=== PATIENT | female | born 1950 | race Caucasian/White ===

== ENCOUNTER 2018-02-12 06:25 | Inpatient (IN) ==
[~2018-02-12 06:25] MED LIST: ACETAMINOPHEN 500 MG TABLET PO ONE; DEXAMETHASONE 4 MG/ML INJECTION IVP ONE; FAMOTIDINE PB 20 MG/50 ML BAG IV ONE; LIDOCAINE 1% (10mg/ml) 2mL INJ PF SDV ID ONE; MELOXICAM 15 MG TABLET PO ONE; METOCLOPRAMIDE 10mg/2ml INJECTION IVP ONE; ONDANSETRON 4 MG/2 ML INJECTION IVP ONE; TRANEXAMIC ACID 1,000 MG in NS 100 ML IV ONE
[2018-02-12] MEDS ORDERED: CEFAZOLIN 1 G INJECTION IVP ONE (06:31)
[2018-02-12 06:36] VITALS: BMI 33.7
[2018-02-12] MEDS ORDERED: TRANEXAMIC ACID 1,000 MG in NS 100 ML IV ONE (07:00)
[2018-02-12] MEDS: LR 1,000 ML IV SCH ×2 (07:02→09:00)
[2018-02-12] MEDS: NOZIN NASAL SWAB NAS SCH ×5 (07:04→22:26)
[2018-02-12] MEDS ORDERED: EPINEPHrine PF 0.25 MG, BUPIVACAINE 0.25% PF 30 ML, KETOROLAC INJ 60 MG in NS 30 ML OPSITE ONE (08:00)
--- NOTE | 2018-02-12 08:07 | Anesthesia Preoperative Report ---
Anesthesia Preoperative Record - Date and Time Date: 02/12/18 Preoperative Diagnosis: Lt TKA M17.12 Proposed Procedure: Total Knee NPO Since Date: 02/12/18 NPO Since Time: 00:00 Allergies/Adverse Reactions: Allergies Allergy/AdvReac Type Severity Reaction Status Date / Time nickel Allergy Intermediate Verified 02/12/18 06:45 No Known Drug Allergies Allergy Unknown Verified 02/12/18 06:45 collagen Allergy Intermediate Uncoded 02/12/18 06:45 - Vital Signs Vital Signs: Temperature 98.3 F 02/12/18 06:33 Pulse Rate 80 02/12/18 06:49 Respiratory Rate 15 02/12/18 06:33 Blood Pressure 160/78 H 02/12/18 07:15 Pulse Oximetry 94 02/12/18 06:33 Height and Weight: Height 5 ft 6.5 in Weight 96.3 kg Body Mass Index 33.7 - Medications Inpatient Medications: Current Medications Epinephrine HCl 0.25 mg/Bupivacaine HCl 30 ml/Ketorolac Tromethamine 60 mg/ Sodium Chloride 62.25 mls @ 1 mls/hr OPSITE INTRAOP ONE; Protocol Stop: 02/14/18 22:14 Lactated Ringer's (Lactated Ringers) 1,000 mls @ 50 mls/hr IV .Q20H [facility] Last Admin: 02/12/18 07:02 Dose: 50 mls/hr Isopropyl Alcohol (Nozin Nasal Swab) 1 each SANDHYA Q1M [facility] Stop: 02/12/18 13:03 Last Admin: 02/12/18 07:07 Dose: 1 each Sodium Chloride (Iv Flush) 10 - 80 ml IV PRN PRN PRN Reason: [place] Home Medications: Home Medications Medication Instructions Recorded Confirmed Type Antiiinflammatory [place] Plus 1 dose PO TID 02/05/18 02/12/18 History Ascorbic Acid [Vitamin C] 1,000 mg PO TID 02/05/18 02/12/18 History Detox Professional Support 3 cap PO DAILY 02/05/18 02/12/18 History Enterpro 1 dose PO BID 02/05/18 02/12/18 History Ergocalciferol (Vitamin D2) 2 tab PO DAILY 02/05/18 02/12/18 History [Vitamin D2] Fish Oil/Dha/Epa [Fish Oil 1,200 1 each PO DAILY 02/05/18 02/12/18 History mg Fish Oil] Fluticasone Nasal [place] [Flonase] 1 spray EA NOSTRIL DAILY PRN 02/05/18 History [id number] 25 gm MC DAILY 02/05/18 02/12/18 History Magnesium Citrate 200 mg PO BID 02/05/18 02/12/18 History Methylsulfonylmethane [MSM] 3 g PO QID 02/05/18 02/12/18 History Pgx Daily 1,500 mg PO DAILY 02/05/18 02/12/18 History Synovx Metabolic 1 cap PO BID 02/05/18 02/12/18 History Synovx Performance 2 cap PO BID 02/05/18 02/12/18 History Tryptophan [l-Tryptophan] 500 mg PO BID 02/05/18 02/12/18 History Ubiquinol 100 mg PO BID 02/05/18 02/12/18 History Vital Eyes Complete 1 tab PO TID 02/05/18 02/12/18 History Docusate Sodium [Stool Softener] 50 mg PO DAILY 02/12/18 02/12/18 History Is Patient on Beta Ty[place]?: No - Medical History Respiratory: DENIES: Asthma, Bronchitis, Chronic Obstructive Pulmonary Disease (COPD), Dyspnea, Orthopnea, Pulmonary Embolism, Pneumonia, Upper Respiratory Infection, Pulmonary Edema, Sleep Apnea, Tuberculosis, Other Cardiovascular: DENIES: Abnormal EKG, Angina, Arrhythmia, Congestive Heart Failure, Coronary Artery Disease, Heart Murmur, Hypertension, Hypotension, High Cholesterol, Myocardial Infarction, Rheumatic Fever, Valvular Heart Disease, Other Gastrointestional: DENIES: Morbid Obesity (Overweight) Neuro/Musculoskeletal: Reports: Back Problems (low back ) Renal/Endocrine: DENIES: Diabetes Mellitus Type 1, Diabetes Mellitus Type 2 Other History: DENIES: Anesthesia Reactions - Surgical History HEENT Surgeries: Reports: Tonsillectomy Cardiac Surgeries/Treatments: DENIES: Cardiac Catheterization GI Surgery/Treatments: Reports: Appendectomy, Colonoscopy, Other (Exc benign abd mass) Musculoskeletal Surgery/Tx: Reports: Knee Arthroscopy (Left) Reproductive Surgery/Treatment: Reports: Hysterectomy Anesthesia Reactions: None Hx Family Anesthesia Reaction: No History of Motion Sickness: No - Social History Smoking Status: Never smoker Substance Use Type: does not use Alcohol Intake Frequency: holidays/special occasions only - Pertinent Findings EKG: Sinus Rhythm - Physical Exam Respiratory Exam: Present: lungs clear, bilateral breath sounds equal Cardiovascular Exam: Present: regular rate and rhythm, no murmur - Airway Assessment Mallampati Score: III TMD: 2 Fingerbreadths Neck Extension: poor Overall Assessment: may be difficult mask vent, may be difficult intubation - ASA ASA Score: 2 - Plan Anesthesia: Regional Block, Neuroaxial Regional/Trunk Block: Spinal Peripheral Nerve Block: Adductor Canal-Left - Discussion Discussion: Discussed risks/options/alternatives of anesthesia and questions answered. Patient consents. Nursing pain assessment noted. Present for Discussion: spouse Attestation Statement: Prior to the delivery of any anesthetic medication, I examined the patient, developed the plan, obtained the patient's consent and discussed the risk and benefits of the procedure with the patient/guardian. - Additional Information Seen by Anesthesia: Yes
[2018-02-12] MEDS ORDERED: VANCOMYCIN 1,000 MG INJECTION ONE (08:13)
[2018-02-12] MEDS ORDERED: VANCOMYCIN 1,000 MG INJECTION IAR ONE (09:02)
[2018-02-12] MEDS ORDERED: LIDOCAINE 2% (100mg/5mL) 5ml PF SDV ONE (09:14)
[2018-02-12] MEDS ORDERED: BUPIVACAINE 0.75%/DEXTROSE 8.5% SPINAL 2 ML AMPULE IJ ONE (09:14)
[2018-02-12] MEDS ORDERED: PROPOFOL 1,000 MG/100 ML VIAL ONE (09:14)
[2018-02-12] MEDS ORDERED: ROPIVACAINE 0.5% (5mg/ml) 30ml INJ ONE (10:04)
[2018-02-12] MEDS ORDERED: PROPOFOL 20 ML ONE (10:24)
--- NOTE | 2018-02-12 11:18 | Anesthesia Procedure Note ---
Peripheral Nerve Blockade - Procedure Physician: Ariel Milian MD Date: 02/12/18 Surgical Procedure: Left Total Knee Discussion: Discussed risks/options/alternatives of anesthesia and questions answered. Patient consents. Nursing pain assessment noted. Block Start: 10:57 Block Stop: 11:01 Block Employed: Adductor Canal-Left Indication: Post-Operative Pain Approach: Left Side Confirmed Position: Semi-Stephens Patient: Consent, Risks/Benefits Discussed, Informed, Post Block Act. Discussed IV Sedation: No Initial Vital Signs: Temperature 98.3 F 02/12/18 06:33 Temperature Source Oral 02/12/18 06:33 Pulse Rate 83 02/12/18 06:33 Respiratory Rate 15 02/12/18 06:33 Blood Pressure 170/83 H 02/12/18 06:33 Blood Pressure Mean 112 02/12/18 06:33 Blood Pressure Position Sitting 02/12/18 06:33 Pulse Oximetry 94 02/12/18 06:33 Oxygen Delivery Method 02/12/18 06:33 Post Vital Signs: Temperature 98.3 F 02/12/18 06:33 Pulse Rate 80 02/12/18 06:49 Respiratory Rate 15 02/12/18 06:33 Blood Pressure 160/78 H 02/12/18 07:15 Pulse Oximetry 94 02/12/18 06:33 Initial Pain Pain Score: 0 Post Block Pain Score: 0 Prep: Chlorhexadine/ETOH Ultrasound Used?: Yes - Injectate Ropivacaine (%): 0.5 Ropivacaine (mL): 20 Was Epi 1:200,000 Used?: No Injection: Injection made incrementally with constant monitoring and aspiration every ml
--- NOTE | 2018-02-12 11:19 | Anesthesia Postoperative Note ---
- Date and Time Date: 02/12/18 Time: :18 - Status Patient Participated in Evaluation: Patient Participated in Person Vital Signs: Temperature 97.3 F 02/12/18 11:05 Pulse Rate 81 02/12/18 11:15 Respiratory Rate 13 02/12/18 11:15 Blood Pressure 118/56 02/12/18 11:15 Pulse Oximetry 95 02/12/18 11:15 Respiratory Function: Airway Patent Cardiovascular Function: Regular Pulse EKG: Sinus Rhythm Mental Status: Alert and Oriented Pain Intensity: 0 Hydration: Taking PO Fluids Complications During Recover: None Apparent - Follow-Up Instructions Instructions: Per Surgeon
--- NOTE | 2018-02-12 11:33 | XRay Report ---
Indication: postoperative image PROCEDURE: XR knee LT 2V: Encounter: Initial Comparison: May 11, 2017 Findings: Postoperative changes of left total knee replacement are seen. There is expected postoperative subcutaneous gas. No evidence of hardware failure or acute fracture. No retained radiopaque surgical instruments or sponges. Overlying material causing artifact. Impression: New left total knee prosthesis without evidence of immediate complication. .
[2018-02-12] MEDS ORDERED: DiphenhydrAMINE 50 MG/ML INJECTION IVP PRN (11:34)
[2018-02-12] MEDS ORDERED: ONDANSETRON 4 MG/2 ML INJECTION IVP PRN (11:34)
[2018-02-12] MEDS ORDERED: DiphenhydrAMINE 25 MG CAPSULE PO PRN (11:34)
[2018-02-12] MEDS ORDERED: NOZIN NASAL SWAB NAS ONE (11:34)
[2018-02-12] MEDS ORDERED: FLUTICASONE NASAL SPRAY 50mcg EA NOSTRIL PRN (11:34)
[2018-02-12] MEDS ORDERED: LORazepam 1 MG TABLET PO PRN (11:34)
[2018-02-12] MEDS: NS 1,000 ML IV SCH ×2 (11:38→23:54)
[2018-02-12] MEDS ORDERED: FALL RISK - PHARMACY CONSULT MC ONE (11:41)
[2018-02-12] MEDS ORDERED: SALINE FLUSH 10ml SYRINGE IV PRN (12:51)
[2018-02-12] MEDS ORDERED: PNEUMOCOCCAL 13 VACCINE 0.5ml INJECTION IM ONE (13:04)
[2018-02-12] MEDS: ACETAMINOPHEN 325 MG TABLET PO SCH ×3 (13:06→22:26)
[2018-02-12] MEDS: Oxycodone *IR* 5 MG TABLET PO PRN ×2 (14:24→19:23)
[2018-02-12] MEDS ORDERED: DEXAMETHASONE 20 MG/5 ML INJECTION IVP ONE (15:00)
--- NOTE | 2018-02-12 15:34 | Operative Note ---
DATE OF SURGERY 02/12/2018 PREOPERATIVE DIAGNOSIS Left knee osteoarthritis. POSTOPERATIVE DIAGNOSIS Left knee osteoarthritis. PROCEDURE Left total knee arthroplasty. SURGEON Tory Milian MD [employer] Taryn Vegas APRN COMPLICATIONS None. ANESTHESIA Spinal. EBL/FLUIDS Please see anesthetic record. DESCRIPTION OF PROCEDURE Mrs. Whitmore and her left knee were identified and marked in the preoperative holding area. She was brought back to the operating suite and spinal anesthetic was administered. She was then placed supine on the operating table. Her left lower extremity was prepped and draped in my normal sterile fashion. Time-out was performed. A standard anterior mild approach was utilized. A medial parapatellar arthrotomy was performed. She had complete loss of cartilage down to bone in the medial compartment, worse on the femur. She had moderate changes in the patellofemoral and lateral compartments. Anterior fat pad was removed. Intramedullary rosalina was then placed into the femur. A distal femoral cut was made in 5 degrees of valgus. Rotation was then set using the posterior condyles setting at 4 degrees of external rotation. This was confirmed by looking at Sevier's line as well as epicondylar axis. Femur was sized at a 5 and distal femoral cuts were finished using the four-in-one cutting block. We then moved to the tibia. A perpendicular cut was made perpendicular to the long axis of the tibia using extramedullary guide. At this point remaining osteophytes and meniscus were removed. Trial components were placed. She was a touch tight medially. More medial osteophytes were removed and this helped. She was still tight in extension and had about a 5-10 degree flexion contracture. I took two more millimeters off the tibial cut. This allowed her full extension as well as good stability in flexion. She was well balanced throughout range of motion. The patella was then resurfaced down to 12 mm remaining of bone and we drilled for a 29 patella. The patella tracked well with the trial. I then chose the narrow 5 femoral component and it was punched. Rotation was set on the tibia. Trial components were then removed. The bone was then prepared for cementing with irrigation and drying. Components were the cemented into place and allowed to cure in extension. Betadine solution was utilized throughout the surgery for irrigation and then irrigated out with normal saline. Joint cocktail was injected throughout the soft tissues during the surgery. 1 g vancomycin powder was placed into the knee joint before the capsulotomy was repaired with #1 Vicryl. 2-0 Vicryl was then used to close the subcutaneous tissue followed by running 4-0 Monocryl in the skin followed by Dermabond and sterile dressing. The drapes were then removed. She was allowed to awaken and was taken to the recovery room under the care of Anesthesia. She tolerated the procedure well. There were no complications. KEVON
[2018-02-12] MEDS: CEFAZOLIN 2 G in NS 100 ML IV SCH ×2 (17:34→23:54)
[2018-02-12] MEDS: NAPROXEN 220 MG TABLET PO SCH (17:35)
[2018-02-12] MEDS ORDERED: SENNOSIDES 8.6 MG TABLET PO SCH (21:00)
[2018-02-12] MEDS: DOCUSATE SODIUM 100 MG CAPSULE PO SCH (22:26)
[2018-02-12] MEDS: ASPIRIN *EC* 81 MG TABLET PO SCH (22:26)
[2018-02-13] MEDS: NS 1,000 ML IV SCH (00:33)
[2018-02-13] MEDS: NOZIN NASAL SWAB NAS SCH ×2 (05:07→14:52)
--- NOTE | 2018-02-13 08:26 | Orthopedic Progress Note ---
Date: Date: 02/13/18 Time: 821 Subjective/Severity of Illness: Mrs. Whitmore is lying in bed this morning on rounds. She was able to ambulate in the halls last night. Reports left knee pain with movement this morning, but improves with the Roxicodone. She denies any CP, SOA, nausea. Tolerating PO well. SBP 110-140s. Hgb- 10.8 Orthopedic Exam Vital signs: Temperature 96.7 F L 02/13/18 07:39 Pulse Rate 74 02/13/18 07:39 Respiratory Rate 18 02/13/18 07:39 Blood Pressure 149/74 H 02/13/18 07:39 Pulse Oximetry 97 02/13/18 07:39 - Constitutional General Appearance: Present: alert, orientated x3, cooperative, well developed, well nourished - Respiratory Exam Present: CTA bilaterally, non-labored - Cardiovascular Exam Present: Regular Rate/Rhythm, pedal pulses intact - Abdominal Exam Present: soft - Extremities Exam Present: pulses intact. Absent: calf tenderness - Dressing Dressing: dry, intact, no drainage - Integumentary Exam Present: pink, warm, dry - Neurological Exam Present: intact to light touch, no deficits - Psychiatric Exam Present: alert, oriented - Labs Result Diagrams: 02/13/18 04:12 02/13/18 04:12 Abnormal lab results 02/13/18 02/13/18 Range/Units 04:12 04:12 Hgb 10.8 L (12-16) GM/DL Hct 33.3 L (36-46) % Chloride 111 H (98-107) MEQ/L H & H 02/13/18 Range/Units 04:12 Hgb 10.8 L (12-16) GM/DL Hct 33.3 L (36-46) % Orthopedic Assessment and Plan (1) Status post total left knee replacement Status: Acute Assessment and Plan: Current anti-coagulation protocol with ASA 81mg BID for VTE prophylaxis. SCD's for added protection SBP elevated this morning 140s- will continue to monitor, likely related to pain. Voiding without difficulty. PT/OT services to improve independent function. Discharge Planning per Case Management. - Anticoagulation Therapy Anticoagulation: ASA 81 mg PO BID x6 weeks - Additional Diagnoses Anemia: no intervention required, patient was asymptomatic, labs monitored Hospital Course Summary Disclaimer: The visit summary below is not to be considered part of the above Progress Note.
--- NOTE | 2018-02-13 08:29 | Discharge Summary ---
Letter to PCP Cover Letter: Becky Whitmore underwent an elective total joint arthroplasty by Dr. Milian. Aspirin 81mg BID therapy was initiated for DVT prophylaxis. Aspirin should be given BID for six weeks postoperatively. Details for their hospitalization can be found in the discharge summary attached. The patient is scheduled to see you one week after surgery for a post-operative check. I hope you find the discharge summary informative and helpful as you resume care of your patient after their surgery. If our office can be of any assistance, please feel free to contact us any time. Orthopedic Discharge Info Date of admission: 02/12/18 06:25 Anticipated date of discharge: 02/13/18 Primary care physician: Pan Martinez MD Attending Physician: Ariel Milian MD Consults: 02/12/18 06:31 Consult to Anesthesiology [CONS] Routine Reason For Exam: Preoperative Assessment 02/12/18 11:34 Case Management Consult [CONS] Routine Reason For Exam: Discharge Planning DME-Walker [CONS] Routine Height: 5 ft 6.5 in Weight: 96.3 kg Total Joint Outpatient Therapy [CONS] Routine Comment: Remove dressing in 2 weeks - Discharge Diagnosis (1) Status post total left knee replacement Status: Acute - Laboratory Result Diagrams: 02/13/18 04:12 02/13/18 04:12 Laboratory: Abnormal lab results 02/13/18 02/13/18 Range/Units 04:12 04:12 Hgb 10.8 L (12-16) GM/DL Hct 33.3 L (36-46) % Chloride 111 H (98-107) MEQ/L H & H 02/13/18 Range/Units 04:12 Hgb 10.8 L (12-16) GM/DL Hct 33.3 L (36-46) % Orthopedic Discharge HPI - HPI Comments This patient was admitted for elective surgical tx of end stage degenerative joint disease that failed to respond to conservative treatment. Further details of this is found in the admission H&P. Orthopedic Hospital Course Hospital course: 02/13/18 08:26 After appropriate preoperative clearance and signing of operative consent, the patient was given IV antibiotics, according to orthopedic protocol. The patient was taken to the operating room and underwent elective joint arthroplasty. Following surgery, antibiotics were discontinued less than 24 hours according to joint protocol. Appropriate anticoagulants were initiated and SCDs added for DVT prevention. The dressing was clean, dry, and intact. Pain control was obtained via multimodal approach. Bowel motivation addressed with scheduled and PRN medications. Early mobilization was initiated through PT services. Discharge arrangements made by a collaborative effort between the patient and Case Management. Hgb remained stable post operatively 10.8, no acute intervention required. Patient was asymptomatic. Renal function and electrolytes within normal range. Patient relatively healthy from medical standpoint, only on vitamins and supplements prior to admission. SBP 110-140s during hospitalization. BP elevation likely r/t pain. Patient to schedule medical follow up with PCP in 1 week after discharge and BP check. Follow-up is scheduled in 2-3 weeks. Discharge instructions given by orthopedic providers and nursing staff at discharge. Discharge condition was good. 02/13/18 08:28 02/13/18 08:33 Care extended to > 2 midnight stays?: No Discharge Plan - Med Rec/Dispo Referrals/Follow Up: Pan Martinez MD [Primary Care Provider] - 02/22/18 11:30 am Frank David PA [Physician Certified Hyperbaric Technologist] - 03/06/18 1:30 pm [place] Instructions: [facility] Ortho Postop Instructions Additional Instructions: [facility] ON 02/15/2018 AT 4:10PM FOR PHYSICAL THERAPY EVAL. PHONE [phone] Prescriptions: New Aspirin *EC* [Ecotrin] 81 mg PO BID tablet Docusate Sodium [Colace] 100 mg PO BID capsule Naproxen [Aleve (Naproxen) 220 mg] 440 mg PO BIDWM tablet Oxycodone *IR* [Roxicodone *Ir*] 5 - 15 mg PO Q3H PRN #60 tablet PRN Reason: Breakthrough Pain PEG 3350 17gm PACKET [Miralax] 17 gm PO DAILY packet Acetaminophen [Tylenol] 650 mg PO QID tablet Milk of Magnesia [Mom] 30 ml PO DAILY udc Continue Fluticasone Nasal [place] [Flonase] 1 spray EA NOSTRIL DAILY PRN PRN Reason: Congestion Synovx Performance 2 cap PO BID Magnesium Citrate 200 mg PO BID Synovx Metabolic 1 cap PO BID Tryptophan [l-Tryptophan] 500 mg PO BID Vital Eyes Complete 1 tab PO TID Ubiquinol 100 mg PO BID Antiiinflammatory [place] Plus 1 dose PO TID Fish Oil/Dha/Epa [Fish Oil 1,200 mg Fish Oil] 1 each PO DAILY Enterpro 1 dose PO BID Ascorbic Acid [Vitamin C] 1,000 mg PO TID Methylsulfonylmethane [MSM] 3 g PO QID [id number] 25 gm MC DAILY Pgx Daily 1,500 mg PO DAILY Ergocalciferol (Vitamin D2) [Vitamin D2] 2 tab PO DAILY Detox Professional Support 3 cap PO DAILY Docusate Sodium [Stool Softener] 50 mg PO DAILY - Disposition 01 Discharged Home, Self-Care - Dismissal Complete Discharge Instructions are:: Complete
[2018-02-13] MEDS ORDERED: POLYETHYL GLYCOL 3350 17gm PACKET PO SCH (09:00)
[2018-02-13 09:18] VITALS: O2SAT 98
[2018-02-13] MEDS: NAPROXEN 220 MG TABLET PO SCH (09:31)
[2018-02-13] MEDS: ASPIRIN *EC* 81 MG TABLET PO SCH (09:32)
[2018-02-13] MEDS: ACETAMINOPHEN 325 MG TABLET PO SCH ×2 (09:32→14:51)
[2018-02-13] MEDS: DOCUSATE SODIUM 100 MG CAPSULE PO SCH (09:32)
[2018-02-13] MEDS: Oxycodone *IR* 5 MG TABLET PO PRN ×2 (09:39→14:51)
[2018-02-13] MEDS ORDERED: SENNOSIDES 8.6 MG TABLET PO PRN (10:47)
[2018-02-13 12:08] VITALS: BP 139/69; PULSE 80; RESP 18; TEMP 96.5
[2018-02-14] MEDS ORDERED: BISACODYL 10 MG SUPPOSITORY RECTALLY SCH (20:00)
== END 2018-02-13 15:00 | disposition home or self-care (01) | DRG 470 ==
LOC: NMC.PERIOP 06:25 → SRG 11:29
PROVIDERS: ADMIT Orthopaedic Surgery; ATTEND Orthopaedic Surgery